=== PATIENT | female | born 1960 ===

== ENCOUNTER 2025-02-17 08:30 | Inpatient (IN) | payer OTHER ==
[~2025-02-17] VITALS: Ht 152.4 cm; Wt 77.6 kg
[2025-02-17] MEDS ORDERED: LIPITOR20 MG (10:52)
[2025-02-17] MEDS ORDERED: COZAAR100 MG PO (10:52)
[2025-02-17] MEDS ORDERED: TAPAZOLE5 MG PO (10:53)
[2025-02-17] MEDS ORDERED: TOPROL XL25 M1 PO (10:53)
[2025-02-17] MEDS ORDERED: NORVASC5 MG PO (10:53)
[2025-02-17 10:58] VITALS: BP 135/84
[2025-02-17 11:22] LABS: BASO % 0.5 % (0.1-1.2); EOS # 0.07 (0.04-0.54); EOS % 0.8 % (0.7-7.0); LYMPH # 2.43 (1.18-3.74); LYMPH % 29.3 % (19.3-53.1); MEAN PLATELET VOLUME 11.40 fl (9.4-12.4); MONO # 0.50 (0.24-0.82); MONO % 6.0 % (4.7-12.5); NEUT # 5.24 (1.56-6.13); NEUT % 63.3 % (34.0-71.1); RED CELL DISTRIBUTION WIDTH 15.9 % (11.6-14.4)
[2025-02-17 11:27] LABS: URINE APPEARANCE Clear; URINE BILIRRUBIN Negative (NEGATIVE); URINE BLOOD Negative; URINE COLOR Yellow; URINE GLUCOSE Negative (NEGATIVE); URINE KETONE Negative (NEGATIVE); URINE LEUKOCYTE Negative; URINE NITRATE Negative; URINE PROTEIN Negative (NEGATIVE); URINE UROBILINOGEN 0.2 E.U./dl
[2025-02-17 11:41] LABS: INR 1.0
[2025-02-17 11:46] LABS: URINE RBC 0-3 /HPF
[2025-02-17 11:47] LABS: URINE BACTERIA MANY; URINE MUCUS MODERATE
[2025-02-17 12:23] LABS: ALT/SGPT 29.0 U/L (12-78); AST/SGOT 17.0 U/L (15-37); BILIRUBIN TOTAL 0.75 mg/dL (0.3-1.2); BUN CREA RATIO 29.0 (7.0-25.0); CREATININE SERUM 0.83 mg/dL (0.55-1.02); GFR 69.21; GLOBULINA 3.6 G/DL (2.4-3.5); GLUCOSE FASTING 93.0 mg/dL (65-100); OSMOLALITY SERUM 289.0 MOSM/KG (275-295)
[2025-02-17 12:53] LABS: RH POSITIVE
[2025-02-24] MEDS ORDERED: VANCOMYCIN HCL 1,000 MG VIAL IR ONE (12:30)
[2025-02-24] MEDS ORDERED: CEFAZOLIN SODIUM 1,000 MG VIAL IV ONE (12:30)
[2025-02-24] MEDS ORDERED: TRANEXAMIC ACID 100MG/1ML (1000MG) AMPUL IV ONE ×2 (12:30)
[2025-02-24] MEDS ORDERED: METHYLPREDNISOLONE ACETATE 80 MG/ML VIAL IM ONE (12:30)
[2025-02-24] MEDS ORDERED: MORPHINE SULFATE 4 MG/ML CARTRIDGE IV ONE (12:30)
[2025-02-24] MEDS ORDERED: KETOROLAC TROMETHAMINE 60 MG VIAL IM ONE (12:30)
[2025-02-24] MEDS ORDERED: ONDANSETRON HCL 2 MG/ML VIAL IV PRN (14:00)
[2025-02-24] MEDS ORDERED: SODIUM CHLORIDE 0.45 % 1,000 ML IV SCH (14:00)
[2025-02-24] MEDS ORDERED: MORPHINE SULFATE 2 MG/ML CARTRIDGE IV NR (14:00)
[2025-02-24] MEDS ORDERED: MORPHINE SULFATE 4 MG/ML CARTRIDGE IV PRN (14:00)
[2025-02-24] MEDS ORDERED: MORPHINE SULFATE 4 MG/ML VIAL IV ONE ×2 (15:35→18:00)
[2025-02-24] MEDS ORDERED: CEFAZOLIN SODIUM 1,000 MG VIAL IV SCH (18:00)
[2025-02-24 19:00] VITALS: BP 154/77; O2SAT 98
[2025-02-24] MEDS ORDERED: GENTAMICIN SULFATE 40 MG/ML VIAL IV SCH (21:00)
[2025-02-25 01:39] VITALS: BP 129/84; O2SAT 98
[2025-02-25] MEDS ORDERED: ACETAMINOPHEN WITH CODEINE 1 UDTAB TABLET PO PRN (07:45)
[2025-02-25 08:00] VITALS: BP 165/74; O2SAT 95
[2025-02-25 08:23] LABS: BASO % 0.2 % (0.1-1.2); EOS # 0.00 (0.04-0.54); EOS % 0.0 % (0.7-7.0); LYMPH # 0.77 (1.18-3.74); LYMPH % 6.1 % (19.3-53.1); MEAN PLATELET VOLUME 11.70 fl (9.4-12.4); MONO # 0.55 (0.24-0.82); MONO % 4.4 % (4.7-12.5); NEUT # 11.19 (1.56-6.13); NEUT % 89.0 % (34.0-71.1); RED CELL DISTRIBUTION WIDTH 15.6 % (11.6-14.4)
[2025-02-25] MEDS ORDERED: AMLODIPINE BESYLATE 5 MG TABLET PO SCH (09:00)
[2025-02-25] MEDS ORDERED: LOSARTAN POTASSIUM 100 MG TABLET PO SCH (09:00)
[2025-02-25] MEDS ORDERED: RIVAROXABAN 10 MG TAB PO SCH (09:00)
[2025-02-25] MEDS ORDERED: METOPROLOL SUCCINATE 25 MG TAB.SR.24H PO SCH (09:00)
[2025-02-25] MEDS ORDERED: IRON FUM,PS/FOLIC/BCOMP,C NO.9 1 CAP CAPSULE PO SCH (09:00)
[2025-02-25] MEDS ORDERED: SENNA/DOCUSATE SODIUM 1 TAB TABLET PO SCH (09:00)
[2025-02-25] MEDS ORDERED: BACITRACIN 28.35 GM OINT.TUBE TOP SCH (09:00)
[2025-02-25] MEDS ORDERED: ATORVASTATIN CALCIUM 20 MG TABLET PO SCH (09:00)
[2025-02-25 12:01] LABS: BASO % 0.1 % (0.1-1.2); EOS # 0.00 (0.04-0.54); EOS % 0.0 % (0.7-7.0); LYMPH # 1.02 (1.18-3.74); LYMPH % 6.8 % (19.3-53.1); MEAN PLATELET VOLUME 11.60 fl (9.4-12.4); MONO # 0.81 (0.24-0.82); MONO % 5.4 % (4.7-12.5); NEUT # 13.02 (1.56-6.13); NEUT % 87.1 % (34.0-71.1); RED CELL DISTRIBUTION WIDTH 15.7 % (11.6-14.4)
[2025-02-25 12:51] LABS: COVID-19 AG NEGATIVE (NEGATIVE)
[2025-02-25 17:30] VITALS: BP 162/68; O2SAT 97
[2025-02-25] MEDS ORDERED: SULFAMETHOXAZOLE/TRIMETHOPRIM DS 1 TAB PO SCH (21:00)
[2025-02-26 02:34] VITALS: BP 171/74; O2SAT 98
[2025-02-26 06:46] LABS: BASO % 0.1 % (0.1-1.2); EOS # 0.00 (0.04-0.54); EOS % 0.0 % (0.7-7.0); LYMPH # 1.56 (1.18-3.74); LYMPH % 10.4 % (19.3-53.1); MEAN PLATELET VOLUME 12.20 fl (9.4-12.4); MONO # 1.04 (0.24-0.82); MONO % 6.9 % (4.7-12.5); NEUT # 12.32 (1.56-6.13); NEUT % 81.9 % (34.0-71.1); RED CELL DISTRIBUTION WIDTH 15.9 % (11.6-14.4)
[2025-02-26] MEDS ORDERED: INTEGRA PLUS C1 EACH PO (07:59)
[2025-02-26] MEDS ORDERED: ACETAMINOPHEN-1 EAC2 PO (07:59)
[2025-02-26] MEDS ORDERED: XARELTO10 MG PO (07:59)
[2025-02-26] MEDS ORDERED: Septra Ds Tablet PO (07:59)
[2025-02-26 08:00] VITALS: BP 155/61; O2SAT 96
== END 2025-02-26 14:17 | DRG 470 ==
LOC: SURH 02-24 08:30 → O/R 02-24 11:54 → SURH 02-24 12:00
PROVIDERS: ADMIT Orthopaedic Surgery Sports Medicine; ATTEND Orthopaedic Surgery Sports Medicine
PROC: 0SRD0J9 Replacement of Left Knee Joint with Synthetic Substitute, Cemented, Open Approach (ICD-10-PCS; principal; 2025-02-24 12:00)
DX: M17.12 Unilateral primary osteoarthritis, left knee (principal)